=== PATIENT | female | born 1950 | race Caucasian/White ===

== ENCOUNTER → 2017-01-23 | Outpatient (CLI) | payer MEDICARE, BC | LOC: LAB 08:46 | DX: Z00.00 Encounter for general adult medical examination without abnormal findings (principal); E78.5 Hyperlipidemia, unspecified; I48.1 Persistent atrial fibrillation; E03.8 Other specified hypothyroidism ==

== ENCOUNTER → 2017-05-02 | Outpatient (CLI) | payer MEDICARE, BC ==
[2014-04-16 12:39] VITALS: BP 124/84
== END ==
LOC: RAD 11:19
DX: R05 Cough (principal); R06.00 Dyspnea, unspecified; R06.2 Wheezing

== ENCOUNTER → 2017-05-25 | Outpatient (CLI) | payer MEDICARE, BC ==
[2014-04-16 12:39] VITALS: BP 124/84
== END ==
LOC: LAB 06:47
DX: R19.7 Diarrhea, unspecified (principal)

== ENCOUNTER → 2017-09-04 | Outpatient (CLI) | payer MEDICARE, BC ==
[2014-04-16 12:39] VITALS: BP 124/84
[2017-09-04 11:22] LABS: BUN/CREATININE RATIO 22.9 (6.0-26.0); CALCIUM 9.3 mg/dL (8.4-10.2); POTASSIUM 5.2 mmol/L (3.6-5.0)
[2017-09-04 23:38] LABS: ALBUMIN 3.4 g/dL (3.5-5.0); TOTAL BILIRUBIN 0.6 mg/dL (0.2-1.3); TOTAL PROTEIN 6.5 g/dL (6.3-8.2)
== END ==
LOC: LAB 10:50
PROVIDERS: Internal Medicine
DX: E03.9 Hypothyroidism, unspecified (principal); N17.9 Acute kidney failure, unspecified; R53.83 Other fatigue; R53.1 Weakness

== ENCOUNTER → 2017-09-05 | Outpatient (CLI) | payer MEDICARE, BC ==
[2014-04-16 12:39] VITALS: BP 124/84
[2017-09-05 08:20] LABS: HEMATOCRIT 34.2 % (37.0-47.0); HEMOGLOBIN 10.1 g/dL (12.5-16.0); MEAN PLATELET VOLUME 9.2 fl (7.4-10.4); RED BLOOD COUNT 4.15 M/mm3 (4.10-5.30); RED CELL DISTRIBUTION WIDTH 15.8 % (11.5-14.5); WHITE BLOOD COUNT 9.6 K/mm3 (4.8-10.8)
== END ==
LOC: LAB 08:10
DX: R53.83 Other fatigue (principal); R29.898 Other symptoms and signs involving the musculoskeletal system

== ENCOUNTER 2017-10-15 11:48 | Emergency (ER) | payer MEDICARE, BC ==
[~2017-10-15] VITALS: Wt 72.1 kg
[2017-10-15 12:57] LABS: HEMATOCRIT 24.1 % (37.0-47.0); MEAN CELL VOLUME 79 fl (78-100); MEAN PLATELET VOLUME 10.7 fl (7.4-10.4); PLATELET COUNT 338 K/mm3 (130-400); RED BLOOD COUNT 3.05 M/mm3 (4.10-5.30)
[2017-10-15 13:07] LABS: ALBUMIN 3.5 g/dL (3.5-5.0); BUN/CREATININE RATIO 30.6 (6.0-26.0); CALCIUM 9.4 mg/dL (8.4-10.2); TOTAL BILIRUBIN 0.7 mg/dL (0.2-1.3); TOTAL PROTEIN 6.3 g/dL (6.3-8.2)
[2017-10-15 13:17] LABS: WHITE BLOOD COUNT 20.6 K/mm3 (4.8-10.8)
[2017-10-15 13:20] LABS: HEMOGLOBIN 6.9 g/dL (12.5-16.0); MEAN CORPUSCULAR HEMOGLOBIN 23 pg (27-31); MEAN CORPUSCULAR HGB CONC 29 g/dL (33-37); RED CELL DISTRIBUTION WIDTH 22.3 % (11.5-14.5)
[2017-10-15 13:37] LABS: PROTHROMBIN TIME 42.2 SECONDS (9.0-12.0)
[2017-10-15 13:58] LABS: PH-URINE 6.5 (5.0 - 8.0); URINE APPEARANCE HAZY; URINE COLOR YELLOW
[2017-10-15 13:59] LABS: URINE BILIRUBIN NEGATIVE (NEGATIVE); URINE BLOOD TRACE (NEGATIVE); URINE GLUCOSE NEGATIVE (NEGATIVE); URINE KETONE NEGATIVE (NEGATIVE); URINE LEUKOCYTE ESTERASE TRACE (NEGATIVE); URINE NITRATE NEGATIVE (NEGATIVE); URINE PROTEIN(semi-quant) TRACE mg/dL (NEGATIVE); URINE UROBILINOGEN NORMAL (NORMAL)
[2017-10-15 14:00] LABS: URINE MUCUS PRESENT (NOT PRESENT)
[2017-10-15 14:00] LABS: BAND 1 % (0-10); LYMPHOCYTE 3 % (20-51); MONOCYTE 1 % (3-10); NEUTROPHILS 95 % (42-75); NUCLEATED RED BLOOD CELL 2 (0-6); POLYCHROMASIA 1+
[2017-10-15 14:01] LABS: HYPOCHROMIA 2+; MICROCYTOSIS 1+; OVALOCYTES 1+
[2017-10-15] MEDS ORDERED: RT ALBUTEROL CC18 GM IH (14:49)
[2017-10-15] MEDS ORDERED: ALBUTEROL2.5 MG/3 M IH (14:51)
[2017-10-15] MEDS ORDERED: XANAX0.25 M1 PO (14:52)
[2017-10-15] MEDS ORDERED: BUDESONIDE1 MG/2 ML IH (14:54)
[2017-10-15] MEDS ORDERED: CLOPIDOGREL PO (14:55)
[2017-10-15] MEDS ORDERED: BUMETANIDE2 M1 PO (14:55)
[2017-10-15] MEDS ORDERED: COQ-10100 MG PO (14:56)
[2017-10-15] MEDS ORDERED: ENOXAPARIN80 MG/0.1 SQ (14:58)
[2017-10-15] MEDS ORDERED: PROZAC40 M1 PO (14:59)
[2017-10-15] MEDS ORDERED: FUROSEMIDE10 MG/1 ML IV (15:04)
[2017-10-15] MEDS ORDERED: SYNTHROID0.15 MG PO (15:05)
[2017-10-15] MEDS ORDERED: CULTURELLE1 EACH PO (15:05)
[2017-10-15] MEDS ORDERED: MAGOX 400241.3 MG PO (15:06)
[2017-10-15] MEDS ORDERED: PROTONIX TR40 M1 PO (15:07)
[2017-10-15] MEDS ORDERED: KLOR-CON 1010 MEQ PO (15:08)
[2017-10-15] MEDS ORDERED: PREDNISONE10 MG PO (15:09)
[2017-10-15] MEDS ORDERED: SEROQUEL 2525 MG/TAB PO (15:09)
[2017-10-15] MEDS ORDERED: SENOKOT NATURA8.6 MG PO (15:10)
[2017-10-15] MEDS ORDERED: CRESTOR 10MG10 MG PO (15:10)
[2017-10-15] MEDS ORDERED: GAS RELIEF80 MG PO (15:11)
[2017-10-15] MEDS ORDERED: COUMADIN 2MG2 MG/TAB PO (15:15)
[2017-10-15] MEDS ORDERED: MULTI-VITAMINS1 TA1 PO (15:15)
[2017-10-15 15:20] VITALS: BP 112/45
== END 2017-10-15 15:56 | disposition short-term general hospital (02) ==
LOC: ED 11:48
PROVIDERS: Family Medicine
DX: I50.82 Biventricular heart failure (principal); N17.9 Acute kidney failure, unspecified; N18.9 Chronic kidney disease, unspecified; I25.10 Atherosclerotic heart disease of native coronary artery without angina pectoris; I27.20 Pulmonary hypertension, unspecified; E89.0 Postprocedural hypothyroidism; Z85.3 Personal history of malignant neoplasm of breast; Z95.2 Presence of prosthetic heart valve; Z95.0 Presence of cardiac pacemaker; Z79.01 Long term (current) use of anticoagulants; Z79.02 Long term (current) use of antithrombotics/antiplatelets
CPT/HCPCS: J1940; J2060